=== PATIENT | female | born 1995 | race Caucasian/White ===

== ENCOUNTER 2017-01-19 10:41 | Emergency (ER) | payer OTHER ==
[~2017-01-19] VITALS: Ht 160 cm; Wt 49.8 kg
[~2017-01-19 10:41] MED LIST: PRENTAB26 PO
[2017-01-19 10:47] VITALS: TEMP 36.4; Ht 160 cm; Wt 49.8 kg
[2017-01-19] MEDS ORDERED: ONDANSETRON INJ 2 MG/ML 2 ML VIAL IV STA (11:11)
[2017-01-19] MEDS ORDERED: SODIUM CHLORIDE 0.9% 1000ML 1,000 ML IV STA (11:11)
[2017-01-19] MEDS ORDERED: MoRPHine SULFATE 10 MG/ML CARP/VIAL IV STA (11:11)
[2017-01-19] MEDS ORDERED: KETOROLAC TROMETHAMINE 30 MG/ML VIAL IV STA (11:11)
[2017-01-19 11:24] LABS: BASO % 0.5 %; BASO ABS # 0.04 K/uL (0-0.2); COMPLETE YES; EOS % 1.9 %; IG% 0.3 %; LYMPH % 15.5 %; LYMPH ABS # 1.23 K/uL (1.2-3.4); MEAN CELL VOLUME 88.6 fL (80-100); MEAN CORPUSCULAR HEMOGLOBIN 31.6 pg (25-34); MEAN CORPUSCULAR HGB CONC 35.7 g/dl (32-36); MEAN PLATELET VOLUME 11.1 fL (7.4-10.4); MONO % 6.2 %; NEUT % 75.6 %; PLATELET COUNT 164 K/uL (130-400); RED BLOOD COUNT 4.74 M/uL (4.2-5.4); WHITE BLOOD COUNT 7.91 K/uL (4.8-10.8)
[2017-01-19 11:27] LABS: URINE APPEARANCE CLEAR (CLEAR); URINE BILIRUBIN NEG (NEG); URINE NITRITE NEG (NEG); URINE PH 7.5 (4.5-7.5); URINE SPECIFIC GRAVITY 1.004 (1.000-1.030); UROBILINOGEN NEG (NEG); ZZUR CULT IF INDIC CLEAN CATCH YES
[2017-01-19 11:28] LABS: MANUAL MICROSCOPIC REQUIRED? NO; REVIEW REQ? YES; URINE COLOR PINK
[2017-01-19 11:43] LABS: ALT/SGPT 29 U/L (12-78); BLOOD UREA NITROGEN 8 mg/dl (7-18); BUN/CREATININE RATIO 9.5 (10-20); CALCIUM 8.9 mg/dl (8.5-10.1); CARBON DIOXIDE 27 mmol/L (21-32); CHLORIDE 105 mmol/L (98-107); GLUCOSE 86 mg/dl (70-99); POTASSIUM 3.5 mmol/L (3.5-5.1); SODIUM 140 mmol/L (136-145)
[2017-01-19 11:46] LABS: ALKALINE PHOSPHATASE 83 U/L (45-117); AST/SGOT 18 U/L (15-37)
--- NOTE | 2017-01-19 12:36 | DIAGNOSTIC IMAGING REPORT ---
CT SCAN OF THE ABDOMEN AND PELVIS WITHOUT CONTRAST CLINICAL HISTORY: Back pain and hematuria COMPARISON STUDY: No previous studies for comparison. TECHNIQUE: CT scan of the abdomen and pelvis was performed from the lung bases to the proximal femurs. Images are reviewed in the axial, sagittal, and coronal planes. IV contrast was not administered for this examination. CT DOSE: 395.34 mGy.cm FINDINGS: Lower chest: The heart is normal in size and configuration, without pericardial effusion. The lung bases and pleural spaces are clear. Liver: The unenhanced liver is normal in size, contour, and attenuation. There is no intrahepatic biliary ductal dilatation. Gallbladder: Unremarkable. Spleen: Normal in size and attenuation. Pancreas: Unremarkable. Adrenal glands: Unremarkable. Kidneys: No renal, ureteral, or bladder calculi are visualized. Bowel: There are no transition zones indicate bowel obstruction. Evaluation of the bowel is limited given the positive intra-abdominal fat and the lack of intravenous and oral contrast. The appendix appears normal as visualized. Peritoneum: There is no intraperitoneal free air. There is trace free pelvic fluid likely physiologic. Vasculature: The abdominal aorta is normal in course and caliber. Adenopathy: None. Pelvic viscera: There is a 31 mm left adnexal cyst, likely representing ovarian follicle. Skeletal structures: No destructive osseous lesions are seen. IMPRESSION: 1. No evidence of bowel obstruction. No evidence of free air 2. No renal, ureteral, or bladder calculi identified 3. 31 mm left adnexal cyst, likely representing an ovarian follicle Electronically signed by: Cleveland Prakash M.D. 01/19/2017 12:34 PM Dictated Date/Time: 01/19/2017 12:30 PM
[2017-01-19] MEDS ORDERED: NITR-5 PO (13:00)
[2017-01-19] MEDS ORDERED: ONDA4TAB10 SL (13:00)
--- NOTE | 2017-01-19 13:00 | EMERGENCY ROOM VISIT NOTE ---
History First contact with patient: 11:03 Chief Complaint: ABDOMINAL PAIN Stated Complaint: VOMITING,BACK PAIN,STOMACH PAIN Nursing Triage Summary: Patient c/o vomiting intermittently x last week, abdominal pain in lower abdomen bilaterally and in lower back bilaterally. Frequency, urgency and pain with urination x a month but is getting worse. History of Present Illness The patient is a 21 year old female who presents to the Emergency Room with complaints of urinary symptoms for one month but are getting worse. The patient states that she started with urinary frequency, urgency, dysuria approximately one month ago but has been getting worse. The patient is now complaining of intermittent lower abdominal pain and pretty much persistent low back pain which she rates at a 9 out of 10. The patient also has had nausea and vomiting for the past week. The patient denies any fever although she's felt hot and cold intermittently. The patient denies any change in bowel habits. The patient denies any cold symptoms. The patient denies any injury to her back. The patient denies any vaginal discharge. She does have her menses currently. She does admit that her menses has been more irregular recently. Review of Systems 10 system review was performed and was negative unless stated otherwise history of present illness. Past Medical/Surgical History Asthma Social History Smoking Status: Current Every Day Smoker Alcohol Use: none Drug Use: none Marital Status: single Housing Status: lives with significant other Occupation Status: employed Current/Historical Medications No Active Prescriptions or Reported Meds Allergies Coded Allergies: No Known Allergies (Unverified , 01/19/17) Physical Exam Vital Signs Date Time Temp Pulse Resp B/P Pulse Ox O2 Delivery O2 Flow Rate FiO2 01/19/17 12:26 69 14 110/64 99 Room Air 01/19/17 10:47 36.4 73 16 113/75 100 Room Air Physical Exam GENERAL: 21-year-old white female appears in no acute distress. MENTAL Status: Alert and oriented 3. EYES: No icterus noted MOUTH: Mucosa is moist NECK: Supple, no lymphadenopathy noted. No carotid bruits noted. LUNGS: Clear auscultation without wheezes rales or rhonchi. CARDIAC: Regular rate and rhythm without murmur. Pulses is full and equal throughout. BACK: No CVA tenderness noted. ABDOMEN: Positive bowel sounds all 4 quadrants. Soft, nontender to palpation without organomegaly or masses. EXTREMITIES: No cyanosis or edema noted. Medical Decision & Procedures ER Provider Diagnostic Interpretation: CT SCAN OF THE ABDOMEN AND PELVIS WITHOUT CONTRAST CLINICAL HISTORY: Back pain and hematuria COMPARISON STUDY: No previous studies for comparison. TECHNIQUE: CT scan of the abdomen and pelvis was performed from the lung bases to the proximal femurs. Images are reviewed in the axial, sagittal, and coronal planes. IV contrast was not administered for this examination. CT DOSE: 395.34 mGy.cm FINDINGS: Lower chest: The heart is normal in size and configuration, without pericardial effusion. The lung bases and pleural spaces are clear. Liver: The unenhanced liver is normal in size, contour, and attenuation. There is no intrahepatic biliary ductal dilatation. Gallbladder: Unremarkable. Spleen: Normal in size and attenuation. Pancreas: Unremarkable. Adrenal glands: Unremarkable. Kidneys: No renal, ureteral, or bladder calculi are visualized. Bowel: There are no transition zones indicate bowel obstruction. Evaluation of the bowel is limited given the positive intra-abdominal fat and the lack of intravenous and oral contrast. The appendix appears normal as visualized. Peritoneum: There is no intraperitoneal free air. There is trace free pelvic fluid likely physiologic. Vasculature: The abdominal aorta is normal in course and caliber. Adenopathy: None. Pelvic viscera: There is a 31 mm left adnexal cyst, likely representing ovarian follicle. Skeletal structures: No destructive osseous lesions are seen. IMPRESSION: 1. No evidence of bowel obstruction. No evidence of free air 2. No renal, ureteral, or bladder calculi identified 3. 31 mm left adnexal cyst, likely representing an ovarian follicle Laboratory Results 01/19/17 11:05 Red Blood Count 4.74, Mean Corpuscular Volume 88.6, Mean Corpuscular Hemoglobin 31.6, Mean Corpuscular Hemoglobin Concent 35.7, Mean Platelet Volume 11.1, Neutrophils (%) (Auto) 75.6, Lymphocytes (%) (Auto) 15.5, Monocytes (%) (Auto) 6.2, Eosinophils (%) (Auto) 1.9, Basophils (%) (Auto) 0.5, Neutrophils # (Auto) 5.98, Lymphocytes # (Auto) 1.23, Monocytes # (Auto) 0.49, Eosinophils # (Auto) 0.15, Basophils # (Auto) 0.04 01/19/17 11:05 Test 01/19/17 11:05 White Blood Count 7.91 K/uL (4.8-10.8) Red Blood Count 4.74 M/uL (4.2-5.4) Hemoglobin 15.0 g/dL (12.0-16.0) Hematocrit 42.0 % (37-47) Mean Corpuscular Volume 88.6 fL (80-100) Mean Corpuscular Hemoglobin 31.6 pg (25-34) Mean Corpuscular Hemoglobin Concent 35.7 g/dl (32-36) Platelet Count 164 K/uL (130-400) Mean Platelet Volume 11.1 fL (7.4-10.4) Neutrophils (%) (Auto) 75.6 % Lymphocytes (%) (Auto) 15.5 % Monocytes (%) (Auto) 6.2 % Eosinophils (%) (Auto) 1.9 % Basophils (%) (Auto) 0.5 % Neutrophils # (Auto) 5.98 K/uL (1.4-6.5) Lymphocytes # (Auto) 1.23 K/uL (1.2-3.4) Monocytes # (Auto) 0.49 K/uL (0.11-0.59) Eosinophils # (Auto) 0.15 K/uL (0-0.5) Basophils # (Auto) 0.04 K/uL (0-0.2) RDW Standard Deviation 39.9 fL (36.4-46.3) RDW Coefficient of Variation 12.3 % (11.5-14.5) Immature Granulocyte % (Auto) 0.3 % Immature Granulocyte # (Auto) 0.02 K/uL (0.00-0.02) Urine Color PINK Urine Appearance CLEAR (CLEAR) Urine pH 7.5 (4.5-7.5) Urine Specific [place] 1.004 (1.000-1.030) Urine Protein NEG (NEG) Urine Glucose (UA) NEG (NEG) Urine Ketones NEG (NEG) Urine Occult Blood 3+ (NEG) Urine Nitrite NEG (NEG) Urine Bilirubin NEG (NEG) Urine Urobilinogen NEG (NEG) Urine Leukocyte Esterase NEG (NEG) Urine WBC (Auto) 0 /hpf (0-5) Urine RBC (Auto) 10-30 /hpf (0-4) Urine Hyaline Casts (Auto) 0 /lpf (0-5) Urine Epithelial Cells (Auto) 10-20 /lpf (0-5) Urine Bacteria (Auto) NEG (NEG) Urine Yeast (Auto) (NONE PRSENT) Anion Gap 8.0 mmol/L (3-11) Est Creatinine Clear Calc Drug Dose 88.9 ml/min Estimated GFR () 123.9 Estimated GFR (Non- 106.9 BUN/Creatinine Ratio 9.5 (10-20) Calcium Level 8.9 mg/dl (8.5-10.1) Total Bilirubin 0.4 mg/dl (0.2-1) Direct Bilirubin < 0.1 mg/dl (0-0.2) Aspartate Amino Transf (AST/SGOT) 18 U/L (15-37) Alanine Aminotransferase (ALT/SGPT) 29 U/L (12-78) Alkaline Phosphatase 83 U/L (45-117) Total Protein 7.2 gm/dl (6.4-8.2) Albumin 4.4 gm/dl (3.4-5.0) Lipase 84 U/L (73-393) Medications Administered Medications (Trade) Dose Ordered Sig/Amanda Route Start Time Stop Time Status Last Admin Dose Admin Sodium Chloride (Nss 1000ml) 1,000 ml @ 999 mls/hr Q1H1M STAT IV 01/19/17 11:11 01/19/17 12:11 DC 01/19/17 11:22 999 MLS/HR Ketorolac Tromethamine (Toradol Inj) 30 mg NOW STAT IV 01/19/17 11:11 01/19/17 11:13 DC 01/19/17 11:21 30 MG Ondansetron HCl (Zofran Inj) 4 mg NOW STAT IV 01/19/17 11:11 01/19/17 11:13 DC 01/19/17 11:21 4 MG Morphine Sulfate (MoRPHine SULFATE INJ) 6 mg NOW STAT IV 01/19/17 11:11 01/19/17 11:13 DC 01/19/17 11:21 6 MG ED Course The patient was evaluated. IV access was obtained. The patient was given 1 L normal saline wide-open. The patient was given Toradol 30 mg IV, morphine 6 mg IV and Zofran 4 mg IV push. CBC and differential, renal profile, LFTs and lipase levels were ordered. Urinalysis was ordered. Labs are reviewed and were unremarkable. Urinalysis revealed blood but no leukocytes, nitrates or bacteria. Urine will be sent for urinalysis. A CT stone study was ordered and interpreted by the radiologist as above without any evidence of ureteral calculi. There is a 3.1 cm left ovarian cyst. The patient was reevaluated informed of the findings. I discussed with the patient that we will prophylactically treat her with antibiotics for a probable UTI. The patient is in agreement. The patient was discharged home in stable condition.. Medical Decision Differential diagnoses include reflux, gastritis, gastroenteritis, pancreatitis , cholelithiasis, cholecystitis, appendicitis, mesenteric ischemia, pyelonephritis, urinary tract infection, renal colic, diverticulitis, shingles, bowel obstruction, intussusception, hernia, ovarian torsion, ruptured ovarian cyst, ectopic , . My suspicions are for either UTI or pyelonephritis Impression Primary Impression: Ovarian cyst Additional Impressions: Dysuria Nausea Departure Information Dispostion Home / Self-Care Condition GOOD Prescriptions Ondasetron Odt (ZOFRAN ODT) 4 Mg Tab 4 MG SL Q6H for Nausea, #10 TAB Prov: Penny Schultz PA-C 01/19/17 Nitrofurantoin Monohyd Macrocr (Macrobid) 100 Mg Cap 100 MG PO BID for 7 Days, #14 CAP Prov: Penny Schultz PA-C 01/19/17 Referrals León Ibarra M.D. (PCP) Forms HOME CARE DOCUMENTATION FORM, IMPORTANT VISIT INFORMATION Patient Instructions ED Nausea Vomiting, My [facility] [employer] Additional Instructions Push fluids. Follow bland diet. Advance diet slowly as tolerated. Ibuprofen 600 mg every 6 hours with food for pain. Take Zofran as needed for nausea. Take Macrobid as prescribed. Call in 36 hours for urine culture results. Call your skin lap bonder first thing Saturday morning for follow-up appointment. If symptoms worsen in the interim, return to ER. Problem Qualifiers
[2017-01-19 13:12] VITALS: BP 114/67; PULSE 84; O2SAT 100
--- NOTE | 2017-01-21 18:44 | Pharmacy Progress Note ---
ED Pharmacist Culture FollowUp Date of Service: Jan 21, 2017. Called patient regarding Group B Strep growing from the patient's urine culture. Patient notes improvement of urinary symptoms while on Macrobid. No change in antibiotics required. Case discussed with Dr. Silver. Patient did note that she has not had a bowel movement in 2 days. Counseled that this is not likely 2nd to her new antibiotic. Suggested that if she experiences other concerning symptoms (abdominal pain, blood in stool) that she should either return to ED or make an appointment with PCP. Suggested trial of [id number] Miralax. Patient also wanted to know if she could come to ED for removal of arm implant of control. Counseled to follow-up with the practice that prescribed/ inserted it.
== END 2017-01-19 13:13 | disposition home or self-care (01) ==
LOC: C.EDB 10:42 → C.EDC 13:13
DX: N83.202 Unspecified ovarian cyst, left side (principal); R30.0 Dysuria; R11.0 Nausea; J45.909 Unspecified asthma, uncomplicated; F17.200 Nicotine dependence, unspecified, uncomplicated

== ENCOUNTER 2017-09-30 18:24 | Emergency (ER) | payer OTHER ==
[~2017-09-30] VITALS: Ht 160 cm; Wt 58.8 kg
[2017-09-30 18:25] VITALS: TEMP 36.9; Ht 160 cm; Wt 58.8 kg
[2017-09-30] MEDS ORDERED: CEFTRIAXONE SOD INJ 250 MG/ML VIAL IM ONE (19:15)
[2017-09-30] MEDS ORDERED: LIDOCAINE HCL 2% JELLY 30 ML TUBE EXT STA (19:16)
[2017-09-30 19:22] LABS: URINE APPEARANCE CLOUDY (CLEAR); URINE BILIRUBIN NEG (NEG); URINE COLOR YELLOW; URINE EPITHELIAL CELL AUTO >30 /lpf (0-5); URINE NITRITE NEG (NEG); URINE PH 5.5 (4.5-7.5); URINE SPECIFIC GRAVITY 1.018 (1.000-1.030); UROBILINOGEN NEG (NEG); ZZUR CULT IF INDIC CLEAN CATCH YES
[2017-09-30 19:24] LABS: MANUAL MICROSCOPIC REQUIRED? NO; REVIEW REQ? NO
--- NOTE | 2017-09-30 19:33 | EMERGENCY ROOM VISIT NOTE ---
History First contact with patient: 18:30 Chief Complaint: PELVIC PAIN Stated Complaint: EXTREME VAGINAL PAIN, HURTS TO PEE, BUMPS History of Present Illness The patient is a 21 year old female who presents to the Emergency Room with complaints of vaginal pain. The patient reports that one month ago, she was diagnosed with chlamydia and was prescribed 10 days of the medication. She states that she finished this medication. She reports after finishing this medication, she again had sexual intercourse with her previous partner. She states that for the past 3 days, she has noticed an increasing number of painful bumps on her vagina. She states these are very painful when she moves or urinates. She also reports some yellowish vaginal discharge. She states there is a painful lump in her left groin. She called her primary care provider 3 days ago and they called her in a dose of Zithromax for presumed chlamydia, as the patient believes that was what was causing her symptoms. She states she took this medication and has not had sexual intercourse since then. She has been taking ibuprofen and aspirin without relief of her pain. She denies any history of STI is other than chlamydia. Review of Systems A complete 10 point review of systems was reviewed with the patient with pertinent positives and negatives as per history of present illness. All else were negative. Social History Smoking Status: Current Every Day Smoker Alcohol Use: none Drug Use: none Marital Status: single Housing Status: lives with significant other Occupation Status: employed Current/Historical Medications Scheduled Cyanocobalamin (Vitamin B 12), 1 TAB PO BID Doxycycline Hyclate (Vibramycin), 100 MG PO BID Fluconazole (Diflucan), 150 MG PO DAILY Multivitamins/Minerals (Mvi With Minerals), 1 TAB PO DAILY Valacyclovir Hcl (Valtrex), 1,000 MG PO BID Scheduled PRN Albuterol Hfa (Ventolin Hfa), 2 PUFFS INH Q6H PRN for SOB/Wheezing Lidocaine HCl (Lidocaine), 1 APPLN TOP QID PRN for Pain [Nasanex], 2 SPRAYS OK DAILYBB PRN for PRN Physical Exam Vital Signs Date Time Temp Pulse Resp B/P (MAP) Pulse Ox O2 Delivery O2 Flow Rate FiO2 09/30/17 19:56 111 17 150/93 99 09/30/17 18:25 36.9 111 17 150/93 99 Room Air Physical Exam VITALS: Vitals are noted on the nurse's note and reviewed by myself. Vital signs stable. GENERAL: This is a 21-year-old female, anxious appearing, tearful, well- developed well-nourished. ABDOMEN: Positive bowel sounds x 4. Soft, nontender to palpation. There is a tender swollen left inguinal lymph node. PELVIC: There are multiple erythematous, ulcerated lesions to the external genitalia as well as a few on the labia minora and vaginal introitus. These are very tender to touch. The patient has a white, thick discharge within the vaginal vault. No evidence of cervicitis. No CMT. NEURO: Patient was alert and oriented to person place and time. Medical Decision & Procedures Laboratory Results Test 09/30/17 19:05 Urine Color YELLOW Urine Appearance CLOUDY (CLEAR) Urine pH 5.5 (4.5-7.5) Urine Specific [place] 1.018 (1.000-1.030) Urine Protein NEG (NEG) Urine Glucose (UA) NEG (NEG) Urine Ketones NEG (NEG) Urine Occult Blood NEG (NEG) Urine Nitrite NEG (NEG) Urine Bilirubin NEG (NEG) Urine Urobilinogen NEG (NEG) Urine Leukocyte Esterase MODERATE (NEG) Urine WBC (Auto) >30 /hpf (0-5) Urine RBC (Auto) 0-4 /hpf (0-4) Urine Hyaline Casts (Auto) 1-5 /lpf (0-5) Urine Epithelial Cells (Auto) >30 /lpf (0-5) Urine Bacteria (Auto) 1+ (NEG) Urine Test NEG (NEG) Date/Time Source Procedure Growth Status 09/30/17 19:05 Vaginal Swab Trichomonas Preparation - Final Complete Medications Administered Medications (Trade) Dose Ordered Sig/Amanda Route Start Time Stop Time Status Last Admin Dose Admin Ceftriaxone Sodium (Rocephin Inj) 250 mg NOW ONCE IM 09/30/17 19:15 09/30/17 19:16 DC 09/30/17 19:15 250 MG Lidocaine HCl (Xylocaine Jelly 2%) 30 ml NOW STAT EXT 09/30/17 19:16 09/30/17 19:18 DC 09/30/17 19:24 30 ML Fluconazole (Diflucan Tab) 150 mg NOW ONCE PO 09/30/17 19:45 09/30/17 19:47 DC 09/30/17 19:51 150 MG Doxycycline Hyclate (Vibramycin Cap) 100 mg NOW STAT PO 09/30/17 19:45 09/30/17 19:47 DC 09/30/17 19:51 100 MG Valacyclovir HCl (Valtrex Tab) 1,000 mg NOW ONCE PO 09/30/17 19:45 09/30/17 19:47 DC 09/30/17 19:51 1,000 MG Medical Decision Differential diagnosis includes chlamydia, gonorrhea, BV, vaginal candidiasis, herpes genitalis, among others. The patient was evaluated as above. Urinalysis was performed and was not suggestive of UTI. Urine was negative. Pelvic exam was performed and shows multiple lesions consistent with HSV infection. Viral culture was obtained. The patient still does have a moderate amount of vaginal discharge which appears consistent with yeast. There is no CMT on exam, however exam is technically limited due to the patient's discomfort secondary to the herpes lesions. Given the patient's history and concern for further STDs, I will treat her with a full PID regimen. She has already received a dose of Zithromax. She was given 250 mg Rocephin IM. She will be placed on doxycycline. I gave her an initial dose of Diflucan as well as an additional dose as a prescription to take for persistent symptoms. She was given an initial dose and prescription of Valtrex. She was given a prescription for lidocaine ointment to be used for symptomatic relief. I had an extensive discussion with the patient regarding her new diagnosis of HSV. She will follow -up with an MEDIA SALES CONSULTANT for further evaluation and treatment of her symptoms. I answered several of the patient's questions regarding today's visit. She verbalized understanding and was discharged home in good condition. Medication Reconcilliation Current Medication List: was personally reviewed by me Blood Pressure Screening Patient's blood pressure: Elevated blood pressure Blood pressure disposition: Elevated BP felt to be situational Impression Primary Impression: Herpes genitalis Additional Impression: Vaginal discharge Departure Information Dispostion Home / Self-Care Condition GOOD Prescriptions Valacyclovir Hcl (VALTREX) 1 Gm Tab 1000 MG PO BID for 10 Days, #20 TAB Prov: Graciela Nazario .LITZY 09/30/17 Fluconazole (DIFLUCAN) 150 Mg Tab 150 MG PO DAILY for 1 Day, #1 TAB Prov: Graciela Nazario PA-C 09/30/17 Doxycycline Hyclate (VIBRAMYCIN) 100 Mg Cap 100 MG PO BID for 14 Days, #28 CAP Prov: Graciela Nazario .LITZY 09/30/17 Lidocaine HCl (Lidocaine) 90 Appln/30 Gm Oint 1 APPLN TOP QID Y for Pain, #1 TUBE Prov: Graciela Nazario PA-C 09/30/17 Referrals No Doctor, Assigned (PCP) Patient Instructions My [facility] Additional Instructions Valtrex: 1 tablet twice daily for a total of 10 days. This is to treat the herpes infection. Apply the lidocaine ointment as needed up to 4 times daily for pain. You were prescribed doxycycline to be taken twice daily for 14 days. This is an antibiotic. All antibiotics have the potential to cause diarrhea. Stop this medication and contact a medical provider if you were to develop any significant adverse side effects including: wheezing, shortness of breath, passing out, vomiting, or a diffuse rash. Always take antibiotics as directed and COMPLETE the ENTIRE course regardless of the improvement of your symptoms. Take the second dose of Diflucan in 3-4 days if you have persistent itchiness/ discharge. For pain control, you can use the following [id number] medicines (if >12 yo): - Regular strength (325mg/tab) Tylenol (acetaminophen) 2 tabs every 4-6 hours as needed. Do not exceed 12 tablets in a 24 hour period. Avoid taking more than 4 grams (4000 mg) of Tylenol per day. This includes any other sources of acetaminophen you may take on a regular basis. - Regular strength (200 mg/tab) Advil (ibuprofen) 1-2 tabs every 4-6 hours as needed. Do not exceed a dose of 3200 mg per day. Scheduled follow-up appointment with MEDIA SALES CONSULTANT. Return to the emergency department with worsening symptoms, abdominal pain, fever or any other new/concerning symptoms. Problem Qualifiers Primary Impression: Herpes genitalis Herpes simplex infection site: vulvovaginitis Qualified Codes: A60.04 - Herpesviral vulvovaginitis
[2017-09-30] MEDS ORDERED: VNTHFA/IN INH (19:38)
[2017-09-30] MEDS ORDERED: MULT-513 PO (19:38)
[2017-09-30] MEDS ORDERED: CYAN1LOZ PO (19:38)
[2017-09-30] MEDS ORDERED: NASANEX NAE (19:38)
[2017-09-30] MEDS ORDERED: CEFTRIAXONE SOD 350MG/ML 1 GM VIAL IM ONE (19:39)
[2017-09-30] MEDS ORDERED: DOXYCYCLINE HYCLATE 100 MG CAP PO STA (19:45)
[2017-09-30] MEDS ORDERED: FLUCONAZOLE 50 MG TAB PO ONE (19:45)
[2017-09-30] MEDS ORDERED: FLUC150T PO (19:50)
[2017-09-30] MEDS ORDERED: XYLO TOP (19:50)
[2017-09-30] MEDS ORDERED: VALA1TAB2 PO (19:50)
[2017-09-30] MEDS ORDERED: DOXY100C PO (19:50)
[2017-09-30 19:56] VITALS: BP 150/93; PULSE 111; O2SAT 99
[2017-10-03 01:27] LABS: CHLAMYDIA TRACH RNA*** NOT DETECTED (NOT DETECTED); GC (NEIS GONORRHOEAE)RNA** NOT DETECTED (NOT DETECTED)
[2017-10-03 12:02] LABS: HERPES SIMPLEX CULT SOURCE OTHER-GROIN; HERPES SIMPLEX VIRUS CULT ISOLATED (NOT ISOLATED)
--- NOTE | 2017-10-03 13:36 | Pharmacy Progress Note ---
ED Pharmacist Culture FollowUp Date of Service: Oct 03, 2017. Patient was sent home with a prescription for vatrex, fluconazole, and doxycycline, which should cover the yeast and positive herpes results. Discussed with Graciela Nazario PA-C and no need to add additional coverage for the group b strep.
== END 2017-09-30 19:56 | disposition home or self-care (01) ==
LOC: C.EDB 18:25 → C.EDA 19:56
DX: A60.00 Herpesviral infection of urogenital system, unspecified (principal); F17.200 Nicotine dependence, unspecified, uncomplicated; Z79.899 Other long term (current) drug therapy

== ENCOUNTER 2018-01-22 14:02 | Emergency (ER) | payer OTHER ==
[~2018-01-22] VITALS: Ht 160 cm; Wt 57.0 kg
[~2018-01-22 14:02] MED LIST changes: +CYAN1LOZ PO; +MULT-513 PO; +NASANEX NAE; -PRENTAB26 PO; +VNTHFA/IN INH; +XYLO TOP
[2018-01-22 14:05] VITALS: Ht 160 cm; Wt 57.0 kg
[2018-01-22] MEDS ORDERED: SODIUM CHLORIDE 0.9% 1000ML 2,000 ML IV STA (14:18)
[2018-01-22] MEDS ORDERED: ONDANSETRON INJ 2 MG/ML 2 ML VIAL IV STA (14:18)
--- NOTE | 2018-01-22 14:26 | EMERGENCY ROOM VISIT NOTE ---
History Report prepared by Omar: Smita Fischer Under the Supervision of: Dr. Dru Fleming M.D. First contact with patient: 14:07 Chief Complaint: VOMITING Stated Complaint: SEVERE BACK PAIN,DIZZY,VOMITING,DIARRHEA History of Present Illness The patient is a 22 year old female who presents to the Emergency Room with complaints of nausea, vomiting, and diarrhea beginning 2 days ago. She states that her vomit has been green and yellow and states that she called her doctor who referred her here. The patient states that 3 weeks ago she also vomited blood. The patient reports having 5 episodes of diarrhea today and 5 episodes of diarrhea yesterday and reports that she is sometimes unable to make it to the bathroom. She also reports having the sweats, chills, fatigue, abdominal pain, cough, congestion and back pain. The patient reports that she feels like she has had to pee but is unable to, but denies burning with urination. She reports alcohol use about twice per week and states that she usually drinks about 5 beers when she goes out. The patient states that she used to be fine with 5 beers but states that recently she has been passing out after drinking that much. The patient states that she still has been drinking over the last several weeks even though she does has not been feeling well. She also reports smoking a pack of cigarettes per day. 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 She denies being around anyone sick at work. The patient states that about a month ago she was on medication for Herpes. She states that two years ago she was told she might have irritable bowel syndrome. The patient states that she is currently not on any medications daily. Source of History: patient Onset: 2 days ago Position: other (global) Quality: other (nausea, vomiting, diarrhea ) Associated Symptoms: + fevers (sweats), + chills, + cough, + vomiting ( vomited blood 3 weeks ago ), + abdominal pain, + back pain, + fatigue, No urinary symptoms (burning with urination ) Review of Systems See HPI for pertinent positives and negatives. A total of ten systems were reviewed and were otherwise negative. Past Medical & Surgical Medical Problems: (1) Asthma Family History Cancer Diabetes mellitus Heart disease Hypertension Social History Smoking Status: Current Every Day Smoker Alcohol Use: heavy Drug Use: none Housing Status: lives with family Occupation Status: employed Current/Historical Medications Scheduled Famotidine (Pepcid), 20 MG PO BID Ondasetron Odt (Zofran Odt), 4 MG SL Q6H Allergies Coded Allergies: No Known Allergies (Unverified , 01/19/17) Physical Exam Vital Signs Date Time Temp Pulse Resp B/P (MAP) Pulse Ox O2 Delivery O2 Flow Rate FiO2 01/22/18 17:12 36.7 77 20 132/84 100 01/22/18 16:47 77 20 132/84 100 Room Air 01/22/18 15:45 77 20 100 Room Air 01/22/18 15:15 83 20 100 Room Air 01/22/18 15:10 133/87 01/22/18 15:00 83 22 99 Room Air 01/22/18 14:35 76 01/22/18 14:05 36.7 111 16 153/92 99 Room Air Physical Exam GENERAL: Awake, alert, fatigued-appearing, in no distress HENT: Normocephalic, atraumatic. Dry mucous membranes, otherwise oropharynx unremarkable. EYES: Normal conjunctiva. Sclera non-icteric. NECK: Supple. No nuchal rigidity. FROM. No JVD. RESPIRATORY: Clear to auscultation. CARDIAC: Sinus tachycardia. Extremities warm and well perfused. Pulses equal. ABDOMEN: Soft, non-distended. Mild generalized abdominal pain. No peritoneal signs. Negative Robins's sign. No rebound or guarding. No masses. RECTAL: Deferred. MUSCULOSKELETAL: Chest examination reveals no tenderness. The back is symmetrical on inspection without obvious abnormality. There is no CVA tenderness to palpation. No joint edema. LOWER EXTREMITIES: Calves are equal size bilaterally and non-tender. No edema. No discoloration. NEURO: Normal sensorium. No sensory or motor deficits noted. SKIN: No rash or jaundice noted. Medical Decision & Procedures Laboratory Results 01/22/18 14:25 Red Blood Count 4.67, Mean Corpuscular Volume 92.7, Mean Corpuscular Hemoglobin 33.2, Mean Corpuscular Hemoglobin Concent 35.8, Mean Platelet Volume 10.8, Neutrophils (%) (Auto) 66.8, Lymphocytes (%) (Auto) 21.9, Monocytes (%) (Auto) 9.5, Eosinophils (%) (Auto) 1.4, Basophils (%) (Auto) 0.2, Neutrophils # (Auto) 2.89, Lymphocytes # (Auto) 0.95, Monocytes # (Auto) 0.41, Eosinophils # (Auto) 0.06, Basophils # (Auto) 0.01 01/22/18 14:25 Test 01/22/18 14:25 01/22/18 14:30 01/22/18 16:55 White Blood Count 4.33 K/uL (4.8-10.8) Red Blood Count 4.67 M/uL (4.2-5.4) Hemoglobin 15.5 g/dL (12.0-16.0) Hematocrit 43.3 % (37-47) Mean Corpuscular Volume 92.7 fL (80-100) Mean Corpuscular Hemoglobin 33.2 pg (25-34) Mean Corpuscular Hemoglobin Concent 35.8 g/dl (32-36) Platelet Count 154 K/uL (130-400) Mean Platelet Volume 10.8 fL (7.4-10.4) Neutrophils (%) (Auto) 66.8 % Lymphocytes (%) (Auto) 21.9 % Monocytes (%) (Auto) 9.5 % Eosinophils (%) (Auto) 1.4 % Basophils (%) (Auto) 0.2 % Neutrophils # (Auto) 2.89 K/uL (1.4-6.5) Lymphocytes # (Auto) 0.95 K/uL (1.2-3.4) Monocytes # (Auto) 0.41 K/uL (0.11-0.59) Eosinophils # (Auto) 0.06 K/uL (0-0.5) Basophils # (Auto) 0.01 K/uL (0-0.2) RDW Standard Deviation 43.5 fL (36.4-46.3) RDW Coefficient of Variation 12.9 % (11.5-14.5) Immature Granulocyte % (Auto) 0.2 % Immature Granulocyte # (Auto) 0.01 K/uL (0.00-0.02) Urine Color ÁNGEL Urine Appearance SL CLOUDY (CLEAR) Urine pH 6.5 (4.5-7.5) Urine Specific [place] 1.020 (1.000-1.030) Urine Protein 2+ (NEG) Urine Glucose (UA) NEG (NEG) Urine Ketones TRACE (NEG) Urine Occult Blood 3+ (NEG) Urine Nitrite NEG (NEG) Urine Bilirubin 1+ (NEG) Urine Urobilinogen NEG (NEG) Urine Leukocyte Esterase TRACE (NEG) Urine RBC 5-10 /hpf (0-4) Urine WBC 1-5 /hpf (0-5) Urine Epithelial Cells >30 /lpf (0-5) Urine Bacteria NEG (NEG) Urine Mucus PRESENT (NONE PRSENT) Urine Test NEG (NEG) Anion Gap 7.0 mmol/L (3-11) Est Creatinine Clear Calc Drug Dose 70.7 ml/min Estimated GFR () 88.5 Estimated GFR (Non- 76.4 BUN/Creatinine Ratio 12.0 (10-20) Calcium Level 9.0 mg/dl (8.5-10.1) Total Bilirubin 0.8 mg/dl (0.2-1) Direct Bilirubin 0.2 mg/dl (0-0.2) Aspartate Amino Transf (AST/SGOT) 16 U/L (15-37) Alanine Aminotransferase (ALT/SGPT) 21 U/L (12-78) Alkaline Phosphatase 98 U/L (45-117) Total Protein 7.5 gm/dl (6.4-8.2) Albumin 4.0 gm/dl (3.4-5.0) Lipase 87 U/L (73-393) Influenza Type A (RT-PCR) Neg for Influ A (NEG) Influenza Type B (RT-PCR) Neg for Influ B (NEG) Laboratory results reviewed by me Medications Administered Medications (Trade) Dose Ordered Sig/Amanda Route Start Time Stop Time Status Last Admin Dose Admin Sodium Chloride 2,000 ml @ 999 mls/hr Q2H1M STAT IV 01/22/18 14:18 01/22/18 16:18 DC 01/22/18 14:34 999 MLS/HR Ondansetron HCl (Zofran Inj) 4 mg NOW STAT IV 01/22/18 14:18 01/22/18 14:22 DC 01/22/18 14:33 4 MG Famotidine (Pepcid Tab) 20 mg NOW ONCE PO 01/22/18 14:30 01/22/18 14:31 DC 01/22/18 14:33 20 MG ED Course 1409: The patient was evaluated in room B9. A complete history and physical exam was performed. 1629: I reevaluated the patient and she is feeling better. 1657: I reevaluated the patient. Discussed results and discharge instructions: She verbalized understanding and agreement. The patient is ready for discharge. Medical Decision I reviewed the patient's past medical history, medications, and the nursing notes as described above. Differential diagnosis: Etiologies such as appendicitis, diverticulitis, PUD, biliary pathology, UTI, pancreatitis, obstruction, mesenteric ischemia, aortic pathology, infections, inflammatory bowel disease, renal colic, as well as others were entertained. The patient is a 22-year-old woman who presents emergency department with complaint of nausea vomiting diarrhea over the past couple of days in the setting of feeling generally fatigued with decreased energy over the past few weeks with a single episode of blood-tinged emesis 3 weeks ago per hpi. Of note , the patient reports that she does drink fairly regularly however "over the past few weeks she has drank 5 beers and she feels that she is going to pass out." Patient also smokes 1 pack per day. She also reports that she completed a course of Valtrex for HSV, IM CTX and Azithro and course of doxycycline for GCC. On arrival the patient is fatigued appearing but no acute distress, afebrile with heart rate 110s and vital signs otherwise stable. Labs unremarkable. Bedside ultrasound of the patient's gallbladder negative for gallstones or pericholecystic fluid. Given the patient's history I offered the patient the option for a pelvic exam however she reported she had to leave at 5 PM to pickle cutter her daughter. Thus we agreed that she will perform a self swab and we will send for GC chlamydia. Given that she has no vaginal symptoms at this time we agree we will wait for test results to inform treatment. Otherwise , the patient's sx are most c/w viral gastroenteritis. Findings and plan for follow-up reviewed with patient. Patient agreeable and d/c'd per discharge instructions. Medication Reconcilliation Current Medication List: was personally reviewed by me Blood Pressure Screening Patient's blood pressure: Elevated blood pressure Blood pressure disposition: Elevated BP felt to be situational Impression Primary Impression: Gastroenteritis Scribe Attestation The scribe's documentation has been prepared under my direction and personally reviewed by me in its entirety. I confirm that the note above accurately reflects all work, treatment, procedures, and medical decision making performed by me. Departure Information Dispostion Home / Self-Care Prescriptions Famotidine (PEPCID) 20 Mg Tab 20 MG PO BID for 7 Days, #14 TAB Prov: Dru Fleming M.D. 01/22/18 Ondasetron Odt (ZOFRAN ODT) 4 Mg Tab 4 MG SL Q6H for Nausea, #10 TAB Prov: Dru Fleming M.D. 01/22/18 Referrals [place] M.D. (PCP) Forms HOME CARE DOCUMENTATION FORM, IMPORTANT VISIT INFORMATION Patient Instructions ED Gastroenteritis Viral, My [facility] Additional Instructions Please follow up with your primary care physician in the next 1-3 days for re- evaluation. You likely have a viral gastroenteritis. Otherwise, your exam and lab results did not show signs of an emergent condition at this time. You have cultures pending and you will receive a phone call only if the results are positive. Acetaminophen or ibuprofen for pain and fevers as needed. Zofran as needed for nausea. Pepcid for acid reduction. Drink plenty of fluids to ensure hydration. You should should curb or quit your regular heavy alcohol use as this will improve your symptoms and avoid any future medical complications. Seek help if you need it. You should also consider stopping smoking as this will also improve your symptoms and avoid any future medical complications. Return to the emergency department for worsening symptoms as described in the accompanying instructions.
[2018-01-22] MEDS ORDERED: FAMOTIDINE 20 MG TAB PO ONE (14:30)
[2018-01-22 14:40] LABS: BASO % 0.2 %; BASO ABS # 0.01 K/uL (0-0.2); EOS % 1.4 %; EOS ABS # 0.06 K/uL (0-0.5); HEMATOCRIT 43.3 % (37-47); HEMOGLOBIN 15.5 g/dL (12.0-16.0); IG# 0.01 K/uL (0.00-0.02); LYMPH % 21.9 %; LYMPH ABS # 0.95 K/uL (1.2-3.4); MEAN CELL VOLUME 92.7 fL (80-100); MEAN CORPUSCULAR HEMOGLOBIN 33.2 pg (25-34); MEAN CORPUSCULAR HGB CONC 35.8 g/dl (32-36); MEAN PLATELET VOLUME 10.8 fL (7.4-10.4); MONO % 9.5 %; MONO ABS # 0.41 K/uL (0.11-0.59); NEUT % 66.8 %; NEUT ABS # 2.89 K/uL (1.4-6.5); PLATELET COUNT 154 K/uL (130-400); RED CELL DISTRIBUTION WIDTH CV 12.9 % (11.5-14.5); RED CELL DISTRIBUTION WIDTH SD 43.5 fL (36.4-46.3); WHITE BLOOD COUNT 4.33 K/uL (4.8-10.8)
[2018-01-22 14:56] LABS: CREATININE 1.05 mg/dl (0.60-1.20); POTASSIUM 3.2 mmol/L (3.5-5.1)
[2018-01-22 14:59] LABS: TOTAL PROTEIN 7.5 gm/dl (6.4-8.2)
[2018-01-22] MEDS ORDERED: FAMO20TA9 PO (16:54)
[2018-01-22] MEDS ORDERED: ONDA4TAB10 SL (16:54)
[2018-01-22 17:00] LABS: INFLUENZA A PCR Neg for Influ A (NEG); INFLUENZA B PCR Neg for Influ B (NEG)
[2018-01-22 17:12] VITALS: BP 132/84; PULSE 77; TEMP 36.7; O2SAT 100
== END 2018-01-22 17:12 | disposition home or self-care (01) ==
LOC: C.EDB 14:03
DX: K52.9 Noninfective gastroenteritis and colitis, unspecified (principal); J45.909 Unspecified asthma, uncomplicated; Z83.3 Family history of diabetes mellitus; Z82.49 Family history of ischemic heart disease and other diseases of the circulatory system; F17.200 Nicotine dependence, unspecified, uncomplicated

== ENCOUNTER 2018-06-10 14:18 | Emergency (ER) | payer SELFPAY ==
[~2018-06-10] VITALS: Ht 160 cm; Wt 54.4 kg
[~2018-06-10 14:18] MED LIST changes: -CYAN1LOZ PO; -MULT-513 PO; -NASANEX NAE; +ONDA4TAB10 SL; -VNTHFA/IN INH; -XYLO TOP
[2018-06-10 14:21] VITALS: TEMP 36.9; Ht 160 cm; Wt 54.4 kg
[2018-06-10] MEDS ORDERED: SODIUM CHLORIDE 0.9% 1000ML 1,000 ML IV STA (14:32)
[2018-06-10] MEDS ORDERED: KETOROLAC TROMETHAMINE 30 MG/ML VIAL IV STA (14:33)
[2018-06-10 15:05] LABS: BASO % 0.4 %; BASO ABS # 0.03 K/uL (0-0.2); EOS ABS # 0.07 K/uL (0-0.5); HEMATOCRIT 42.7 % (37-47); HEMOGLOBIN 15.3 g/dL (12.0-16.0); IG# 0.01 K/uL (0.00-0.02); LYMPH % 17.2 %; LYMPH ABS # 1.24 K/uL (1.2-3.4); MEAN CELL VOLUME 94.3 fL (80-100); MEAN CORPUSCULAR HEMOGLOBIN 33.8 pg (25-34); MEAN CORPUSCULAR HGB CONC 35.8 g/dl (32-36); MEAN PLATELET VOLUME 10.5 fL (7.4-10.4); MONO % 6.4 %; MONO ABS # 0.46 K/uL (0.11-0.59); NEUT % 74.9 %; NEUT ABS # 5.42 K/uL (1.4-6.5); PLATELET COUNT 188 K/uL (130-400); RED CELL DISTRIBUTION WIDTH CV 12.2 % (11.5-14.5); RED CELL DISTRIBUTION WIDTH SD 41.6 fL (36.4-46.3); WHITE BLOOD COUNT 7.23 K/uL (4.8-10.8)
--- NOTE | 2018-06-10 15:13 | EMERGENCY ROOM VISIT NOTE ---
History Report prepared by Omar: Nirmala Mejia Under the Supervision of: Dr. Marcos Pastrana D.O. 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 The next morning when she woke up, she was nauseous and had some pain with urination, and realized her tampon was still in. She reports that she bought a douche as "it smelled bad" and she hoped it would loosen the tampon, and she eventually pulled it out but states it was upside down and misshapen. The patient states she is nauseous, dizzy, and has abdominal pain and has a difficult time focusing. She states she has had herpes and chlamydia in the past and her last BM was this morning. She also thinks her LNMP is currently occurring but is unsure as she thinks she could have hematuria. 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 Review of Systems See HPI for pertinent positives & negatives. A total of 10 systems reviewed and were otherwise negative. Past Medical & Surgical Medical Problems: (1) Asthma (2) Herpes Family History Cancer Diabetes mellitus Heart disease Hypertension Social History Smoking Status: Current Every Day Smoker Alcohol Use: heavy Drug Use: none Marital Status: in relationship Housing Status: lives with family Occupation Status: employed Current/Historical Medications No Active Prescriptions or Reported Meds Allergies Coded Allergies: No Known Allergies (Unverified , 06/10/18) Physical Exam Vital Signs Date Time Temp Pulse Resp B/P (MAP) Pulse Ox O2 Delivery O2 Flow Rate FiO2 06/10/18 16:35 107 151/84 100 06/10/18 15:38 89 16 163/98 99 Room Air 06/10/18 14:21 36.9 105 18 147/96 97 Room Air Physical Exam GENERAL: Sitting up in bed, alert, well appearing, well nourished, no distress, non-toxic EYE EXAM: normal conjunctiva. PERRL and EOM's grossly intact. Left pupil larger than right. Both are round and reactive OROPHARYNX: no exudate, no erythema, lips, buccal mucosa, and tongue normal and mucous membranes are moist NECK: supple, no nuchal rigidity, no adenopathy, non-tender LUNGS: Clear to auscultation. Normal chest wall mechanics HEART: no murmurs, S1 normal and S2 normal ABDOMEN: abdomen soft, non-tender, normo-active bowel sounds, no masses, no rebound or guarding. BACK: Back is symmetrical on inspection and there is no deformity, no midline tenderness, no CVA tenderness. SKIN: no rashes and no bruising UPPER EXTREMITIES: upper extremities are grossly normal. LOWER EXTREMITIES: No pitting edema. NEURO EXAM: Normal sensorium, cranial nerves II-XII intact, normal speech, no weakness of arms, no weakness of legs. No drift. Finger to nose intact. Medical Decision & Procedures Laboratory Results 06/10/18 14:45 Red Blood Count 4.53, Mean Corpuscular Volume 94.3, Mean Corpuscular Hemoglobin 33.8, Mean Corpuscular Hemoglobin Concent 35.8, Mean Platelet Volume 10.5, Neutrophils (%) (Auto) 74.9, Lymphocytes (%) (Auto) 17.2, Monocytes (%) (Auto) 6.4, Eosinophils (%) (Auto) 1.0, Basophils (%) (Auto) 0.4, Neutrophils # (Auto) 5.42, Lymphocytes # (Auto) 1.24, Monocytes # (Auto) 0.46, Eosinophils # (Auto) 0.07, Basophils # (Auto) 0.03 06/10/18 14:45 Test 06/10/18 14:37 06/10/18 14:45 06/10/18 16:07 Urine Color DK YELLOW Urine Appearance CLEAR (CLEAR) Urine pH 6.0 (4.5-7.5) Urine Specific [place] 1.018 (1.000-1.030) Urine Protein NEG (NEG) Urine Glucose (UA) NEG (NEG) Urine Ketones TRACE (NEG) Urine Occult Blood 3+ (NEG) Urine Nitrite NEG (NEG) Urine Bilirubin NEG (NEG) Urine Urobilinogen NEG (NEG) Urine Leukocyte Esterase SMALL (NEG) Urine WBC (Auto) 1-5 /hpf (0-5) Urine RBC (Auto) 0-4 /hpf (0-4) Urine Hyaline Casts (Auto) 1-5 /lpf (0-5) Urine Epithelial Cells (Auto) >30 /lpf (0-5) Urine Bacteria (Auto) NEG (NEG) Urine Test NEG (NEG) White Blood Count 7.23 K/uL (4.8-10.8) Red Blood Count 4.53 M/uL (4.2-5.4) Hemoglobin 15.3 g/dL (12.0-16.0) Hematocrit 42.7 % (37-47) Mean Corpuscular Volume 94.3 fL (80-100) Mean Corpuscular Hemoglobin 33.8 pg (25-34) Mean Corpuscular Hemoglobin Concent 35.8 g/dl (32-36) Platelet Count 188 K/uL (130-400) Mean Platelet Volume 10.5 fL (7.4-10.4) Neutrophils (%) (Auto) 74.9 % Lymphocytes (%) (Auto) 17.2 % Monocytes (%) (Auto) 6.4 % Eosinophils (%) (Auto) 1.0 % Basophils (%) (Auto) 0.4 % Neutrophils # (Auto) 5.42 K/uL (1.4-6.5) Lymphocytes # (Auto) 1.24 K/uL (1.2-3.4) Monocytes # (Auto) 0.46 K/uL (0.11-0.59) Eosinophils # (Auto) 0.07 K/uL (0-0.5) Basophils # (Auto) 0.03 K/uL (0-0.2) RDW Standard Deviation 41.6 fL (36.4-46.3) RDW Coefficient of Variation 12.2 % (11.5-14.5) Immature Granulocyte % (Auto) 0.1 % Immature Granulocyte # (Auto) 0.01 K/uL (0.00-0.02) Anion Gap 11.0 mmol/L (3-11) Est Creatinine Clear Calc Drug Dose 64.0 ml/min Estimated GFR () 78.5 Estimated GFR (Non- 67.7 BUN/Creatinine Ratio 4.1 (10-20) Calcium Level 8.8 mg/dl (8.5-10.1) Total Bilirubin 0.5 mg/dl (0.2-1) Direct Bilirubin 0.2 mg/dl (0-0.2) Aspartate Amino Transf (AST/SGOT) 13 U/L (15-37) Alanine Aminotransferase (ALT/SGPT) 25 U/L (12-78) Alkaline Phosphatase 87 U/L (45-117) Total Protein 7.7 gm/dl (6.4-8.2) Albumin 4.2 gm/dl (3.4-5.0) Lipase 75 U/L (73-393) Date/Time Source Procedure Growth Status 06/10/18 16:07 Cervix Scraping Trichomonas Preparation - Final Complete Laboratory results per my review. Medications Administered Medications (Trade) Dose Ordered Sig/Amanda Route Start Time Stop Time Status Last Admin Dose Admin Sodium Chloride 1,000 ml @ 999 mls/hr Q1H1M STAT IV 06/10/18 14:32 06/10/18 15:32 DC 06/10/18 14:46 999 MLS/HR Ketorolac Tromethamine (Toradol Inj) 30 mg NOW STAT IV 06/10/18 14:33 06/10/18 14:34 DC 06/10/18 14:46 30 MG ED Course ED COURSE: Vital signs were reviewed and showed hypertension situationally The patients medical record was reviewed The above diagnostic studies were performed and reviewed. ED treatments and interventions as stated above. 1426: The patient was evaluated in room B10. A complete history and physical examination was performed. 1432: Ordered Sodium Chloride 1000 ml @ 999 mls/hr IV 1433: Ordered Toradol Inj 30 mg IV 1518: Discussed with the change nurse about the patient's triage note. The patient is not a 302. 1600: I performed a pelvic exam at this time. It showed normal external genitalia. Normal vaginal mucosa. No discharge with the exception of a small amount of blood. No adnexal or cervical motion tenderness. 1610: Upon reevaluation, the patient is feeling better. I discussed my findings with the patient and she understands and agrees with the treatment plan. Based on the patients age, coexisting illnesses, exam and lab findings the decision to treat as an outpatient was made. The patient remained stable while under my care. The patient appeared well at the time of discharge. Medical Decision Differential diagnoses includes but is not limited to gastritis, peptic ulcer disease, GERD, gallbladder disease, pancreatitis, small bowel obstruction, acute coronary syndrome, pericarditis, ischemic bowel, irritable bowel disease, irritable bowel syndrome, appendicitis, diverticulitis, malignancy, hernia, urinary tract infection, torsion, [/ectopic (if female)], perforation, trauma, infectious. Patient is a 22-year-old female presents to ER for lower abdominal pain. She notes she left a tampon in for 2 days after having sex. She was able to pull it out. She denies any fevers. No chest pain or shortness of breath. CBC along with BMP has mild hypokalemia. Bilirubin and LFTs along lipase was normal. UA was negative. was negative. Ultrasound shows several ovarian cyst. No signs of torsion. Pelvic exam was unremarkable without obvious signs of infection. Cultures were sent. Patient was given Toradol and fluids and did feel significantly better. She is updated bedside discharge follow-up PCP as an outpatient. Discussed with Pt concerning signs and symptoms to watch out for. Pt was instructed to follow up with their PCP and discussed with the patient their option to return to the ED at anytime for persistent or worsening symptoms. The appropriate anticipatory guidance and out-patient management, including indications for return to the emergency department, were explained at length to the patient and understood. Medication Reconcilliation Current Medication List: was personally reviewed by me Blood Pressure Screening Patient's blood pressure: Elevated blood pressure Blood pressure disposition: Elevated BP felt to be situational Impression Primary Impression: Abdominal pain Additional Impression: Hypokalemia Scribe Attestation The scribe's documentation has been prepared under my direction and personally reviewed by me in its entirety. I confirm that the note above accurately reflects all work, treatment, procedures, and medical decision making performed by me. Departure Information Dispostion Home / Self-Care Prescriptions No Active Prescriptions or Reported Meds Referrals [place] M.D. (PCP) Forms HOME CARE DOCUMENTATION FORM, IMPORTANT VISIT INFORMATION, WORK / SCHOOL INSTRUCTIONS Patient Instructions My [facility] [employer] Additional Instructions Please follow up with your primary care doctor with in the next 24 hours. Any worsening of your symptoms, please return to the ED immediately. This includes any fevers greater than 100.4, worsening pain, chest pain, shortness breath, persistent nausea, vomiting, unable to eat or drink, vaginal bleeding, new vaginal discharge, or any other concerning signs or symptoms from your standpoint. Please take Tylenol or Motrin as needed for pain. Problem Qualifiers Primary Impression: Abdominal pain Abdominal location: unspecified location Qualified Codes: R10.9 - Unspecified abdominal pain
[2018-06-10 15:28] LABS: ALBUMIN 4.2 gm/dl (3.4-5.0); CALCIUM 8.8 mg/dl (8.5-10.1); CREATININE 1.16 mg/dl (0.60-1.20); POTASSIUM 3.2 mmol/L (3.5-5.1); TOTAL PROTEIN 7.7 gm/dl (6.4-8.2)
--- NOTE | 2018-06-10 15:42 | DIAGNOSTIC IMAGING REPORT ---
PELVIC COMPLETE NON OB CLINICAL HISTORY: FB ? lower abd pain PAIN COMPARISON STUDY: None FINDINGS: The uterus measured 7 cm. The endometrial stripe measured 3 mm. The right ovary measured 2.5 cm maximum dimension. Normal vascular flow. Several subcentimeters follicular cyst.. The left ovary measured 3.1 cm maximum dimension with normal vascular flow. Several small subcentimeter follicular cyst.. There is no ultrasonographic evidence of ovarian torsion. It should be noted that ovarian torsion can be present with normal Doppler ultrasonographic findings. There was no evidence of pathologic free pelvic fluid. IMPRESSION: Several small ovarian follicular cysts bilaterally. Otherwise normal study. The above report was generated using voice recognition software. It may contain grammatical, syntax or spelling errors. Electronically signed by: Lake Schultz M.D. 06/10/2018 3:41 PM Dictated Date/Time: 06/10/2018 3:40 PM
[2018-06-10 16:35] VITALS: BP 151/84; PULSE 107; O2SAT 100
== END 2018-06-10 16:35 | disposition home or self-care (01) ==
LOC: C.EDB 14:19
DX: R10.30 Lower abdominal pain, unspecified (principal); E87.6 Hypokalemia; F17.200 Nicotine dependence, unspecified, uncomplicated; Z87.42 Personal history of other diseases of the female genital tract